=== PATIENT | male | born 1975 | race Two or more races ===

== ENCOUNTER 2017-10-29 08:04 | Day surgery (SDC) | payer OTHER ==
[2017-10-29] MEDS ORDERED: FENTAnyl 50 MCG/ML VIAL (09:22)
[2017-10-29] MEDS ORDERED: PROPOFOL 20 ML (09:22)
[2017-10-29] MEDS ORDERED: MIDAZOLAM 1 MG/ML 2 ML INJ (09:23)
== END 2017-10-29 16:03 | disposition home or self-care (01) ==
LOC: GIL 08:04
DX: K64.4 Residual hemorrhoidal skin tags (principal); K64.8 Other hemorrhoids
CPT/HCPCS: 45378

== ENCOUNTER 2017-12-31 08:06 | Day surgery (SDC) | payer OTHER ==
[~2017-12-31 08:06] MED LIST: CEFAZOLIN 2 GM/50 ML (PMX) 50 ML IVPB; LIDOCAINE 2% (SDV) 5 ML INJ; ROCURONIUM 50 MG INJ; SOD CHLORIDE 0.9% 1,000 ML IV
[2017-12-31] MEDS ORDERED: PROPOFOL 20 ML (11:54)
[2017-12-31] MEDS ORDERED: ALBUTEROL 0.083% (NEB) 2.5 MG/3 ML AMP HHN (12:00)
[2017-12-31] MEDS ORDERED: hydrALAzine 20 MG INJ IV (12:00)
[2017-12-31] MEDS ORDERED: LABETALOL HCL 20MG INJ IV (12:00)
[2017-12-31] MEDS ORDERED: MIDAZOLAM 1 MG/ML 2 ML INJ IV (12:00)
[2017-12-31] MEDS ORDERED: METOCLOPRAMIDE 10 MG INJ IV (12:00)
[2017-12-31] MEDS ORDERED: ONDANSETRON 4 MG INJ IV (12:00)
[2017-12-31] MEDS ORDERED: FENTAnyl 50 MCG/ML VIAL IV ×2 (12:00)
[2017-12-31] MEDS ORDERED: EPHEDrine SULFATE 50 MG/5 ML SYG IV (12:00)
[2017-12-31] MEDS ORDERED: OXYCODONE/ACETAMINOPHEN (5/325) TAB PO (12:00)
[2017-12-31] MEDS ORDERED: HYDROmorphONE (0.2 MG/ML) 10ML SYG IV ×2 (12:00)
[2017-12-31] MEDS ORDERED: MEPERIDINE 25 MG INJ IV (12:00)
[2017-12-31] MEDS ORDERED: CEFAZOLIN 1 GM INJ (12:27)
[2017-12-31] MEDS ORDERED: SUGAMMADEX SODIUM 200 MG/2 ML VIAL IV (12:53)
[2017-12-31] MEDS: BUPIVACAINE 0.25% (MPF) 30 ML INJ (12:59)
[2017-12-31] MEDS: DIPHENHYDRAMINE 50 MG INJ IV (13:27)
[2017-12-31] MEDS: FENTAnyl 50 MCG/ML VIAL IV ×3 (13:27→14:33)
[2017-12-31] MEDS: HYDROmorphONE (0.2 MG/ML) 10ML SYG IV ×3 (13:28→14:33)
[2017-12-31] MEDS: KETOROLAC 30 MG INJ IV (13:28)
[2017-12-31] MEDS: OXYCODONE/ACETAMINOPHEN (5/325) TAB PO (14:54)
== END 2017-12-31 15:00 | disposition home or self-care (01) ==
LOC: SDS 08:06
DX: K64.4 Residual hemorrhoidal skin tags (principal); K64.8 Other hemorrhoids
CPT/HCPCS: 46260; 88304